=== PATIENT | male | born 1935 | race Caucasian/White ===

== ENCOUNTER 2016-12-19 09:51 | Emergency (ER) | payer OTHER ==
[~2016-12-19] VITALS: Ht 170.2 cm; Wt 93.0 kg
[2016-12-19 11:02] LABS: PLATELET COUNT 229 x10^3mcL (130-400); RED CELL DISTRIBUTION WIDTH 13.9 % (11.5-14.5)
[2016-12-19 11:06] LABS: CALCIUM 9.7 mg/dL (8.5-10.1); CARBON DIOXIDE 28.4 mmol/L (21-32); CHLORIDE SERUM 103 mmol/L (98-107); CREATININE SERUM 1.6 mg/dL (0.7-1.3); GLUCOSE SERUM 121 mg/dL (74-106); POTASSIUM SERUM 4.1 mmol/L (3.5-5.1); SODIUM SERUM 139 mmol/L (136-145)
[2016-12-19 11:10] LABS: ALBUMIN 4.2 g/dL (3.4-5.0); ALKALINE PHOSPHATASE 50 U/L (46-116); ALT/SGPT 9 U/L (16-63); AST/SGOT 22 U/L (15-37); BILIRUBIN TOTAL 0.74 mg/dL (0.20-1.00); CHOLESTEROL 146 mg/dL (<200); PHOSPHOROUS 3.5 mg/dL (2.5-4.9); TOTAL PROTEIN, SERUM 7.9 g/dL (6.4-8.2); URIC ACID 4.6 mg/dL (3.5-7.2)
[2016-12-19 11:16] LABS: HDL CHOLESTEROL 29 mg/dL (40-60)
[2016-12-19 12:03] LABS: BAND NEUTROPHIL 1 % (0-10); BASOPHIL 0 % (0-2); MONOCYTE 6 % (0-7); SEGMENTED NEUTROPHILS 82 % (37-75)
[2016-12-19 12:04] LABS: PLATELET MORPHOLOGY PLATELETS NORMAL; rbc morphology (normal/abnorm) ABNORMAL (NORMAL)
[2016-12-19 14:00] VITALS: BP 147/76
== END 2016-12-19 14:00 | disposition home or self-care (01) ==
LOC: ED 09:51
PROVIDERS: Emergency Medicine
DX: R53.1 Weakness (principal); E78.00 Pure hypercholesterolemia, unspecified; Z79.899 Other long term (current) drug therapy
CPT/HCPCS: 83880; J2550; Q0092

== ENCOUNTER → 2018-06-16 | Outpatient (CLI) | payer OTHER | END | disposition home or self-care (01) | LOC: CT 16:53 | PROC: BW211ZZ Computerized Tomography (CT Scan) of Abdomen and Pelvis using Low Osmolar Contrast (ICD-10-PCS; principal; 2018-06-16) | DX: R10.32 Left lower quadrant pain (principal); R10.12 Left upper quadrant pain | CPT/HCPCS: Q9967 ==

== ENCOUNTER 2018-07-10 14:27 | Inpatient (IN) | payer OTHER ==
[~2018-07-10] VITALS: Ht 170.2 cm; Wt 93.1 kg
[2018-07-10 16:05] LABS: BASOPHIL % 0.7 % (0-2); PLATELET COUNT 220 x10^3mcL (130-400); RED CELL DISTRIBUTION WIDTH 14.7 % (11.5-14.5)
[2018-07-10 16:15] LABS: CALCIUM 9.2 mg/dL (8.5-10.1); CARBON DIOXIDE 26.4 mmol/L (21-32); CHLORIDE SERUM 107 mmol/L (98-107); CREATININE SERUM 1.5 mg/dL (0.7-1.3); GLUCOSE SERUM 110 mg/dL (74-106); SODIUM SERUM 141 mmol/L (136-145)
[2018-07-10 16:21] LABS: ALBUMIN 3.8 g/dL (3.4-5.0); ALKALINE PHOSPHATASE 53 U/L (46-116); ALT/SGPT 27 U/L (16-63); AMYLASE 92 U/L (25-115); AST/SGOT 20 U/L (15-37); BILIRUBIN TOTAL 0.43 mg/dL (0.20-1.00); LIPASE 277 IU/L (73-393); TOTAL PROTEIN, SERUM 7.7 g/dL (6.4-8.2)
[2018-07-10] MEDS ORDERED: DUEXIS1 TAB (16:21)
[2018-07-10] MEDS ORDERED: GABAPENTIN100 M2 (16:21)
[2018-07-10 17:31] VITALS: BP 191/73
[2018-07-10 18:52] VITALS: BP 147/73
[2018-07-10 20:35] VITALS: BP 148/63
[2018-07-11] VITALS (7 sets, daily range): BP systolic 125–182; BP diastolic 57–93
[2018-07-11 07:41] LABS: CALCIUM 9.5 mg/dL (8.5-10.1); CARBON DIOXIDE 25.5 mmol/L (21-32); CHLORIDE SERUM 108 mmol/L (98-107); CREATININE SERUM 1.2 mg/dL (0.7-1.3); GLUCOSE SERUM 117 mg/dL (74-106); POTASSIUM SERUM 4.2 mmol/L (3.5-5.1); SODIUM SERUM 143 mmol/L (136-145)
[2018-07-11 08:08] LABS: BASOPHIL % 0.7 % (0-2); PLATELET COUNT 205 x10^3mcL (130-400)
[2018-07-11 08:12] LABS: RED CELL DISTRIBUTION WIDTH 14.8 % (11.5-14.5)
[2018-07-11 16:48] LABS: microscopic required? YES; urine erythrocyte TRACE (NEGATIVE)
[2018-07-11 16:56] LABS: AMPHETAMINE QUAL UR NONE DETECTED (See below)
[2018-07-12 00:26] VITALS: BP 157/83
[2018-07-12 06:53] VITALS: BP 165/88
[2018-07-12 08:57] VITALS: BP 168/78
[2018-07-12 12:35] VITALS: BP 139/59
[2018-07-12 14:16] VITALS: Ht 170.2 cm; Wt 93.1 kg
[2018-07-12] MEDS ORDERED: DIOVAN80 MG PO (14:24)
[2018-07-12] MEDS ORDERED: IBU800 M2 PO (14:24)
[2018-07-12 16:52] VITALS: BP 152/82
[2018-07-12 20:26] VITALS: BP 153/80
[2018-07-13 05:35] VITALS: BP 148/76
[2018-07-13 06:27] LABS: BASOPHIL % 0.4 % (0-2); PLATELET COUNT 237 x10^3mcL (130-400)
[2018-07-13 06:35] LABS: RED CELL DISTRIBUTION WIDTH 14.8 % (11.5-14.5)
[2018-07-13 07:12] LABS: CALCIUM 9.5 mg/dL (8.5-10.1); CARBON DIOXIDE 26.3 mmol/L (21-32); CHLORIDE SERUM 100 mmol/L (98-107); CREATININE SERUM 1.2 mg/dL (0.7-1.3); GLUCOSE SERUM 112 mg/dL (74-106); POTASSIUM SERUM 3.9 mmol/L (3.5-5.1); SODIUM SERUM 134 mmol/L (136-145)
[2018-07-13 10:45] VITALS: BP 150/62
[2018-07-13 12:25] VITALS: BP 165/72
[2018-07-13 15:23] VITALS: BP 143/66
[2018-07-13 17:11] VITALS: BP 115/67
[2018-07-13 19:56] VITALS: BP 137/65
[2018-07-14 05:09] VITALS: BP 130/70
[2018-07-14 07:52] VITALS: BP 177/76
[2018-07-14 08:08] VITALS: BP 177/76
[2018-07-14 11:58] VITALS: BP 127/65
[2018-07-14 12:11] VITALS: BP 127/65
== END 2018-07-14 13:01 | disposition home or self-care (01) | DRG 917 ==
LOC: ED 14:27 → DU 15:40
PROVIDERS: Emergency Medicine; Internal Medicine; Internal Medicine Gastroenterology
PROC: 0DB68ZX Excision of Stomach, Via Natural or Artificial Opening Endoscopic, Diagnostic (ICD-10-PCS; principal; 2018-07-11 12:30)
PROC: 0DBL8ZZ Excision of Transverse Colon, Via Natural or Artificial Opening Endoscopic (ICD-10-PCS; 2018-07-13 09:00)
DX: T39.391A Poisoning by other nonsteroidal anti-inflammatory drugs [NSAID], accidental (unintentional), initial encounter (principal); N17.0 Acute kidney failure with tubular necrosis; K25.4 Chronic or unspecified gastric ulcer with hemorrhage; I47.2 Ventricular tachycardia; F55.8 Abuse of other non-psychoactive substances; D12.3 Benign neoplasm of transverse colon; K57.30 Diverticulosis of large intestine without perforation or abscess without bleeding; K64.8 Other hemorrhoids; I16.0 Hypertensive urgency; I49.1 Atrial premature depolarization; I49.3 Ventricular premature depolarization; I10 Essential (primary) hypertension; N32.9 Bladder disorder, unspecified; M60.9 Myositis, unspecified; G25.81 Restless legs syndrome; Z60.2 Problems related to living alone; Z68.32 Body mass index [BMI] 32.0-32.9, adult; Y92.009 Unspecified place in unspecified non-institutional (private) residence as the place of occurrence of the external cause
CPT/HCPCS: 43235; 45378; 76770; C9113; J1200; J1610; J2060; J2250; J2310; J3010; J3475; J3490; J7030; J7040; J7042; Q0092; Q9966; Q9967